=== PATIENT | female | born 1985 | race Caucasian/White ===

== ENCOUNTER 2022-06-18 01:33 | Day surgery (SDC) | payer OTHER, SELFPAY ==
[2022-05-14 17:49] VITALS: BMI 25.4
--- NOTE | 2022-05-14 18:24 | PC.NURSE ---
Addendum entered by Kerry Burnett RN 06/17/22 13:06: PT INSTRUCTED TO ARRIVE AT 0700 ON 06/18/22 FOR SURGERY AT 0800. PT HAS STOPPED VITAMINS/SUPPLEMENTS. Original Note: Report to the Outpatient Waiting Room, entrance under the [facility] located off [facility], at time 1000 on date _05/21/22 OR Time: _1200__. Time changes happen often and if your time is changed the preop area will call you the afternoon before. - You and your visitor will be asked to self-screen and do not enter if you have any COVID symptoms. - Only one visitor and NO children visitors are allowed at this time. - The patient visitor is requested to leave or wait in car when not with patient due to restrictions. - A mask is required within the hospital. Patients may have clear liquids (water, carbonated beverages, clear teas, apple juice) until 3 hours prior to surgery with a maximum of 20 ounces. - No food from midnight until time of surgery - Infants may have breast milk until 4 hours before surgery, infant formula 6 hours prior to surgery. - Children will be allowed to drink immediately following surgery. If applicable, please bring a bottle or sippy cup to assist with drinking. Juice, water, soda, and popsicles are readily available. For infants on formula, please bring formula the day of surgery. Pacifiers are allowed. Take the following medications with a SIP of water the morning of surgery: venlafaxine__ Medications to discontinue per physician _vitamin d, iron Date to take last dose_05/18/22_ Please no make-up, nail croatian, hairspray, perfume, deodorant, or body powder the day of surgery. No jewelry (including any body piercings) or valuables the day of surgery, leave them at home. Please take a shower or bath the night before, or the morning of, surgery with an antibacterial soap. Wear comfortable, loose fitting clothing. Children are encouraged to wear pajamas. - Jewelry must be removed prior to entering the operating room. Rings and piercings that are not removed may be cut off. - The hospital will not accept responsibility for valuables. - Please leave all valuables, including medications, at home the day of surgery. If you are going home after surgery, a licensed intermodal owner operator truck driver must drive you home. - NO public transportation without another adult. - We recommend that an adult stay with you for 24 hours following discharge. - We also recommend that you do not drive, make important decision, drink alcoholic beverages, or take any drugs that were not prescribed by your health care provider for at least 24 hours after your discharge time. For Pediatric surgeries, we recommend two adults accompany the child home (only one inside the building at this time). Follow any additional instructions given to you from your surgeon. If you or anyone in your household have experienced Covid symptoms in the past week, please notify your surgeon or the nurse liaison at the phone number below for possible testing. Telephone instructions given to Haritha Lai and asked if any additional questions and then verbalized understanding. Patient advised to call surgeon office or pre surgery nurse liaison [phone] if any additional questions.
[2022-06-17 11:52] VITALS: BMI 25.4
[2022-06-18] VITALS (8 sets, daily range): BP systolic 120–144; BP diastolic 66–89; PULSE 80–94; RESP 12–18; TEMP 36.3–36.9; O2SAT 97–100
--- NOTE | 2022-06-18 06:39 | PM.IMHP ---
H&P: HPI History of Present Illness Date/Time: 06/18/22 07:05 Chief Complaint: Desire for mastopexy and brachioplasty Narrative: She is here today for bilateral breast mastopexy as well as bilateral brachioplasty. She has had time to review the consents and would like proceed. Review of Systems Review of Systems: All systems reviewed & are unremarkable except as noted in HPI and below [facility] Past Medical History Medical History (Updated 06/17/22 @ 14:33 by Edmundo Ramos MD) PCOS (polycystic ovarian syndrome) Surgical History Surgical History H/O discectomy H/O laminectomy Family History Family History Mother Non Hodgkin's lymphoma Cerebrovascular accident Acute myocardial infarction Social History Social History Years smoked: 4 Smoking status: Former smoker Tobacco type: cigarettes Smoking end date: 09/01/15 Alcohol intake: current Drinks per week: 2 Substance use: never Substance use type: does not use Living arrangements: with family Spiritual care concerns: No Meds Home Medications and Allergies Home Medications Medication Instructions Recorded Confirmed Type cholecalciferol (vitamin D3) 1 unit PO DAILY 04/18/22 06/18/22 History gabapentin 300 mg capsule 300 mg PO HS 04/18/22 06/18/22 History venlafaxine 75 mg tablet 75 mg PO DAILY 04/18/22 06/18/22 History ondansetron 4 mg disintegrating 4 mg PO Q8H #21 tabs 04/30/22 06/18/22 Rx tablet oxycodone-acetaminophen 5 mg-325 1 tablet PO Q6H PRN pain #30 tabs 04/30/22 06/18/22 Rx mg tablet (Percocet) iron,carbonyl 30 mg-vitamin C 10 1 tablet PO 3XW 05/14/22 06/18/22 History mg-FOS 25 mg chewable tablet (Chewable Iron) metformin 500 mg tablet,extended 500 mg PO DAILY 05/14/22 06/18/22 History release 24 hr spironolactone 50 mg tablet 50 mg PO DAILY 05/14/22 06/18/22 History cyanocobalamin (vitamin B-12) 1,000 mcg subcut MONTHLY 06/17/22 06/18/22 History 1,000 mcg/mL injection solution ferrous sulfate 325 mg (65 mg 325 mg PO 3XW 06/17/22 06/18/22 History iron) tablet (FeroSul) Allergies Allergy/AdvReac Type Severity Reaction Status Date / Time No Known Allergies Allergy Unverified 06/18/22 08:04 Exam Const: General: cooperative, healthy appearing, comfortable and no acute distress HENMT: Head: normal to inspection Ears: external ears normal Face/Nose/Sinus: Normal external nose present Eyes: General: appearance normal, both eyes and all related structures Neck: Neck: normal visual inspection Chest: Chest palpation & inspection: normal inspection of the chest Resp: Effort & Inspection: normal respiratory effort, able to speak in complete sentences, no audible wheezes and no cough Skin: General skin exam: normal color, no rashes or lesions noted and elasticity normal Neuro: General: oriented to person, oriented to place and oriented to time Extrem: General: normal to inspection Psych: Appearance: grossly normal Mental Status: mental status grossly normal Assessment and Plan Assessment and plan (1) Breast asymmetry: Code(s): N64.89 - Other specified disorders of breast Status: Acute Assessment and Plan: She would like proceed with bilateral mastopexy. Her goal is to match her left breast size (symmetry) and understands she will never have perfect symmetry. Risks, benefits, alternatives were discussed in extensive detail. I want to be very realistic about the risks involved as well as expectations. Reviewed consent in detail. Discussed aftercare and what to monitor for. Made sure I answered all questions answered to satisfaction and consent obtained. (2) Skin laxity: Code(s): L57.4 - Cutis laxa senilis Status: Acute Assessment and Plan: She would also like to proceed with bila
[2022-06-18 07:43] LABS: Urine Cotinine NEGATIVE
[2022-06-18 08:08] LABS: Hematocrit 39.3 % (37.0-47.0); Hemoglobin 13.4 g/dL (12.0-15.0)
--- NOTE | 2022-06-18 08:13 | WPDHPUPDATE1 ---
History and Physical Update Update Date/Time: 06/18/22 08:13 History and Physical has been reviewed, including an updated exam of the patient. There are NO changes in the patient's condition. Risks, benefits, and alternatives have been discussed and questions answered. Patient agrees to proceed with procedure.
--- NOTE | 2022-06-18 08:19 | WPDANESEPPF ---
Anes - Initial Pre Proc Eval Procedure: Operation Date: 06/18/22 09:00 Proposed Procedures p Bilateral Breast Mastopexy - Jose E Srivastava MD s Bilateral Brachioplasty - Jose E Srivastava MD Date/Time: 06/18/22 08:19 Surgeon: Jose E Srivastava MD Pre Op Diagnosis: skin laxity Patient Data Age: 36 Gender: F Height: 1.73 m Weight: 78 kg Last Vital Signs Temp 97.3 F L 06/18/22 07:27 Pulse 83 06/18/22 07:27 Resp 18 06/18/22 07:27 BP 127/89 06/18/22 07:27 Pulse Ox 100 06/18/22 07:27 O2 Del Method Room Air 06/18/22 07:27 Allergies Allergy/AdvReac Type Severity Reaction Status Date / Time No Known Allergies Allergy Unverified 06/18/22 08:04 Home Medications Medication Instructions Recorded Confirmed Type cholecalciferol (vitamin D3) 1 unit PO DAILY 04/18/22 06/18/22 History gabapentin 300 mg capsule 300 mg PO HS 04/18/22 06/18/22 History venlafaxine 75 mg tablet 75 mg PO DAILY 04/18/22 06/18/22 History ondansetron 4 mg disintegrating 4 mg PO Q8H #21 tabs 04/30/22 06/18/22 Rx tablet oxycodone-acetaminophen 5 mg-325 1 tablet PO Q6H PRN pain #30 tabs 04/30/22 06/18/22 Rx mg tablet (Percocet) iron,carbonyl 30 mg-vitamin C 10 1 tablet PO 3XW 05/14/22 06/18/22 History mg-FOS 25 mg chewable tablet (Chewable Iron) metformin 500 mg tablet,extended 500 mg PO DAILY 05/14/22 06/18/22 History release 24 hr spironolactone 50 mg tablet 50 mg PO DAILY 05/14/22 06/18/22 History cyanocobalamin (vitamin B-12) 1,000 mcg subcut MONTHLY 06/17/22 06/18/22 History 1,000 mcg/mL injection solution ferrous sulfate 325 mg (65 mg 325 mg PO 3XW 06/17/22 06/18/22 History iron) tablet (FeroSul) Laboratory Tests 06/18/22 06/18/22 07:18 07:33 Hgb 13.4 g/dL g/dL (12.0-15.0) Hct 39.3 % % (37.0-47.0) Cotinine Negative Patient hx anesthesia problems: none Family hx anesthesia problems: none Results Review: All pre-operative results and documents have been reviewed as part of the pre-operative evaluation. [facility] Past Medical History Medical History (Updated 06/17/22 @ 14:33 by Edmundo Ramos MD) PCOS (polycystic ovarian syndrome) Surgical History Surgical History H/O discectomy H/O laminectomy Family History Family History Mother Non Hodgkin's lymphoma Cerebrovascular accident Acute myocardial infarction Social History Social History Years smoked: 4 Smoking status: Former smoker Tobacco type: cigarettes Smoking end date: 09/01/15 Alcohol intake: current Drinks per week: 2 Substance use: never Substance use type: does not use Living arrangements: with family Spiritual care concerns: No Anes - Eval Final PreProcedure Day of Procedure 06/18/22 08:19 Patient weight: normal Heart: regular rate and rhythm Lungs: clear to auscultation Airway: Mallampati scale class II Neurological: alert and oriented Last oral intake: >/= 8 hours ASA classification: II Emergent: no Anesthetic plan: proceed Anesthesia type and monitoring: general ETT and standard monitoring Results Review: All pre-operative results and documents have been reviewed as part of the pre-operative evaluation. Informed Consent: The patient's anesthetic plan and its attendant risks and benefits were discussed with the patient/family/POA. Questions were solicited and answers provided to the satisfaction of the patient/family/POA.
[2022-06-18] MEDS: ceFAZolin 2 GM/D5W 50 ML 2 GM/50 ML BAG IVPB (08:41)
--- NOTE | 2022-06-18 08:42 | W.PM.PROC2 ---
Procedure Note - Detailed Date of Procedure 06/18/22 Pre-op Diagnosis skin laxity Post-op Diagnosis Same Procedure Performed 1. Bilateral Mastopexy 2. Bilateral Brachioplasty Surgeon Jose E Srivastava MD Anesthesia General Findings Inverted T, Superior medial pedicle Description of Procedure She is here today for the above procedures. Previously and again today the risks, benefits, alternatives were discussed in extensive detail. I wanted her to be very realistic about the risks involved as well as expectations. We discussed aftercare and what to monitor for. Made sure answered all of her questions to her satisfaction today and consent was obtained. Marked in the preoperative holding area with their verification. The patient was taken to the operating room placed supine on the operating table. Anesthesia was provided by anesthesiology. She was prepped and draped in a standard sterile fashion. Arms I verified the our markings. An 11 blade was used to make a stab incision. I infiltrated with a tumescent solution. Once adequate time for hemostasis suction lipectomy was completed based on S.A.F.E. technique using a 5 mm basket cannula. I completely defatted the tissue to be removed. Ten blade used to make a cut as you go incision closing as we proceeded with tony to ensure good approximation. This was closed with 2-0 strata fix followed by 3-0 strata fix in a running subcuticular 4-0 Monocryl and tissue glue. Bilateral arms completed in the same manner. Breast Stab incisions were made an small volume of tumescent solution utilized. I tailor tacked the breast into position. Placed her in a sitting position. Verified the nipple-areolar location based on preoperative planning as well as intraoperative observations and measurements in full agreement. She was placed supine. I de-epithelialized the pedicle as well as the autoaugmentation flap. The remainder of the incisions were made and I created autoaugmentation flaps adjusting the right to match the left. These were tacked the chest wall using 2-0 PDS. I tailor tacked into place as sat to verify symmetry. Then placed supine and tony removed. Next I copiously irrigated with saline solution and verified a strict hemostasis. I closed along the IMF with 2-0 Stratafix. Along the vertical with 2-0 PDS. I closed around the B[place] with 3-0 strata fix. 3-0 Monocryl along the vertical. 3-0 Stratafix along the IMF. I finally closed everything with running subcuticular 4-0 Monocryl and tissue glue. Fluffs and surgical bra were placed. Estimated Blood Loss 30 Drains No Packing No Pathology None sent Complications No immediate complications Condition Stable Disposition PACU
[2022-06-18] MEDS: TRANEXAMIC ACID 1,000MG/ISO100 1,000 MG/100 ML BAG 200 MG IVPB (09:41)
[2022-06-18] MEDS: LACTATED RINGERS 1,000 ML 30 ML IV CONT ×2 (12:48)
[2022-06-18] MEDS: fentaNYL CITRATE INJ (*CRX) 100 MCG/2 ML VIAL 25 MCG IV PUSH ×4 (13:05→13:29)
[2022-06-18] MEDS: oxyCODONE HCL (*CRX) 5 MG TAB IR PO (14:14)
== END 2022-06-18 14:45 | disposition home or self-care (01) ==
PROVIDERS: Anesthesiology; Visit Provider Surgery Plastic and Reconstructive Surgery
PROC: (CPT 19316; principal; 2022-06-18 09:00)
PROC: (CPT 15836; 2022-06-18 09:00)
DX: Z41.1 Encounter for cosmetic surgery (principal); L57.4 Cutis laxa senilis; N64.89 Other specified disorders of breast; E28.2 Polycystic ovarian syndrome; Z87.891 Personal history of nicotine dependence; Z79.84 Long term (current) use of oral hypoglycemic drugs; Z79.899 Other long term (current) drug therapy
CPT/HCPCS: 19316; 15836; 80307; 85014; 85018; A9270; J0171; J0330; J0690; J1100; J1170; J2250; J2370; J2405; J2704; J3010; J7120